=== PATIENT | male | born 1985 | race Caucasian/White ===

== ENCOUNTER → 2024-08-10 | Outpatient (CLI) | payer BC, SELFPAY ==
--- NOTE | 2024-08-10 16:05 | CT_ITS ---
PROCEDURE: ABDOMEN/PELVIS WITH CONTRAST REASON FOR EXAM: Left lower quadrant pain. Possible diverticulitis. TECHNIQUE: Abdomen and pelvis CT with intravenous contrast. Oral contrast was also used. IV CONTRAST: 100 cc of Isovue-300. COMPARISON: None. FINDINGS: Lung bases: Clear Liver: Unremarkable. Gallbladder: Unremarkable. Spleen: Unremarkable. Pancreas: Unremarkable. Adrenals: Unremarkable. Kidneys: Unremarkable. Bladder: Unremarkable. Reproductive Organs: Unremarkable. Bowel: Sigmoid colon diverticula with wall thickening and adjacent inflammatory changes. No evidence of perforation or abscess. Appendix: Normal. Lymph nodes: No suspicious lymph node enlargement. Vasculature: Major vascular structures are unremarkable. Peritoneum / Retroperitoneum: No ascites. No free air. Bones: Unremarkable. CT/Abdomen/Pelvis WITH Contrast IMPRESSION: Findings in keeping with non complicated sigmoid diverticulitis. One or more dose reduction techniques were used (e.g., Automated exposure contr ol, adjustment of the mA and/or kV according to patient size, use of iterative reconstruction technique). Reading Location: [facility]
== END | disposition home or self-care (01) ==
LOC: CT 14:06
PROVIDERS: PCP Family Medicine; Referring Provider Nurse Practitioner Acute Care; Visit Provider Nurse Practitioner Acute Care
DX: R10.32 Left lower quadrant pain (principal)
CPT/HCPCS: 74177; Q9967

== ENCOUNTER 2024-10-18 08:44 | Day surgery (SDC) | payer BC, SELFPAY ==
[2024-10-18] VITALS (8 sets, daily range): BP systolic 91–156; BP diastolic 62–118; PULSE 65–79; RESP 16–18; TEMP 36.2–36.7; O2SAT 94–97; BMI 40.2
[2024-10-18] MEDS: Lactated Ringers 1,000 ML 15 ML IV (09:16)
--- NOTE | 2024-10-18 09:20 | PCM.HP.STD ---
HPI - General General Date of Admission: 10/18/24 Date of Service: 10/18/24 Chief Complaint: Diverticulitis HPI Narrative 39y/o male presents for evaluation of diverticulitis. CT completed in ED on 04/16/2024 revealed moderate diverticulitis in the descending colon. LABS 04/16/2024 CBC and CMP unremarkable Reviewed Dr. Shruthi arriaga note 04/22/2024 ED records [facility] 04/16/2024 CT 04/16/2024 - pain from 04/2024 episode resolved - reports he developed the same pain two days ago - gas, slight fever (100), cramping left side of the abdomen - nausea, diarrhea, ABD pain and bloating - increase in frequency of stools and smaller in quantity - reports he is having intermittent stabbing pain - denies any bleeding - c/o gas and pressure - April pain was more persistent - has never had a colonoscopy - denies any family h/o colon CA - denies any heart or lung disease - denies any kidney disease - denies any weight loss [facility] Medical History (Updated 10/18/24 @ 09:[address] Dai Friend, DO) Wears contact lenses Wears glasses Alcohol use History of diverticulitis Non-smoker History of echocardiogram Segmental and somatic dysfunction of sacral region Segmental and somatic dysfunction of rib cage Segmental and somatic dysfunction of pelvic region Segmental and somatic dysfunction of lumbar region Segmental and somatic dysfunction of cervical region Mid back pain Diverticulitis HTN (hypertension) Home Medications ?Medication ?Instructions ?Recorded ?Last Taken ?Type acetaminophen 325 mg capsule 325 mg PO ONCE PRN fever or pain 08/10/24 Unknown History ondansetron HCl 4 mg tablet 4 mg PO .COMPLEX #5 tabs 08/10/24 Unknown Rx simethicone 180 mg capsule (Gas-X 180 mg PO .after meals and HS 08/10/24 Unknown History Ultra-Strength) sodium sul 1.479 gram-potas ch See Rx Instructions PO PER PKG DIR 08/10/24 Unknown Rx 0.188 gram-magnes sul 0.225 gram #24 tabs tablet (Sutab) Allergy/AdvReac Type Severity Reaction Status Date / Time doxycycline AdvReac Intermediate nausea and Verified 10/18/24 09:13 vomiting Family History Mother Diabetes Hypertension Surgical History History of vasectomy Social History household members: none Smoking Status: Never smoker alcohol intake: current alcohol intake frequency: a few times a month Alcohol type: beer substance use type: does not use caffeine: Yes ROS Constitutional Constitutional: Denies fatigue, fever(s), poor appetite, weight gain or weight loss Gastrointestinal Gastrointestinal: Denies belching, bloating, change in bowel habits, change in stool character, chewing difficulty, coffee ground emesis, constipation, cramping, diarrhea, dyspepsia, dysphagia, early satiety, excessive flatus, fecal incontinence, heartburn, hematemesis, hematochezia, hemorrhoids, loose stools, melena, nausea, odynophagia, rectal bleeding, tenesmus, vomiting or weight changes Physical Exam Const alert, oriented x3, no apparent distress and healthy appearing General Appearance: cooperative GI normal to inspection, nondistended, normoactive bowel sounds, soft to palpation, non-tender and non-distended Percussion: normal to percussion Rectal Exam: deferred Assessment & Plan Assessment/Plan (1) LLQ pain: (2) Diverticulitis: PLAN: Assessment and Plan Assessment and Plan (1) LLQ pain: Status: Acute Orders: Orders Abdomen/Pelvis WITH Contrast Today R10.32 - Left lower quadrant pain Medications: New sod sulf-pot chloride-mag sulf 1.479-0.188- 0.225 gram (Sutab) take as directed for split dose bowel prep 24 tabs 0RF ondansetron HCl 4 mg orally; two tablets PO two hours prior to start of bowel prep and one every 4 hours as needed for N/V 5 tabs 0RF Plan 39y/o male presents for consultation. CT completed in ED on 04/16/2024 revealed moderate diverticulitis in the descending colon. CBC and CMP were unremarkable at that time. He reports recurrent left sided abdominal pain began two days ago, this is the same quality and intensity of pain he experienced with initial episode of acute diverticulitis. He reports a fever of 100 on Friday. He has been on a soft diet. He also complains of nausea, bloating and diarrhea. Abdominal exam today is remarkable for moderate left sided abdominal pain. I have scheduled him for a STAT CT and will plan to proceed with colonoscopy in 10-12 weeks. Patient Instructions: STAT CT today Colonoscopy in 10-12 weeks - Sutab bowel prep
--- NOTE | 2024-10-18 09:36 | PRE.ANES_ITS ---
ASA Classification* ASA Classification ASA Classification: 3 Assessment & Plan Anesthesia* Anesthesia Assessment Anesthesia Assessment: Discussed sedation and/or anesthesia options, risks, benefits, and alternatives with patient/parents/legal guardian/POA. Questions invited. The patient/parents/legal guardian/POA seems to understand and agrees to proceed with anesthesia plan. Reviewed the physical assessment, medical history, allergy history and patient home medications list prior to surgery/procedure/anesthetic and documented any changes. Performed airway and anesthesia risk assessments. Anesthesia Type Anesthesia Type: MAC History Source History Obtained from:: Patient and Chart Anesthesia Focused Assessment* Temperature: 98.1 F Pulse Rate: 79 Blood Pressure: 124/83 Respiratory Rate: 18 Pulse Ox: 97 Oxygen Delivery Method: Room Air Airway Assessment Mouth opens: >3 cm Mallampati Score: III Teeth Condition: Missing (Patient has several missing molars. 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 When Was Last Pacemaker Check QUESTION #4 FULL TEXT: You/Your Family Experience fever (hyperthermia) with Anesthesia Last Oral Intake Last Oral intake: Last Oral Intake NPO since 07:00 10/18/24 09:27 Meds taken in AM with sips of No 10/18/24 09:27 water? Meds patient instructed to take am of surgery Any additional information?: Yes NPO since: 07:00 (Patient finished prep at 7 AM.) PONV PONV - construction job titles: PONV - construction job titles Female No 10/14/24 13:40 HX of Motion Sickness No 10/14/24 13:40 HX of N/V After Surgery No 10/14/24 13:40 Non-Smoker No 10/14/24 13:40 Duration of Surgery greater No 10/14/24 13:40 than 60 minutes Number of Risk Factors PONV Score Height & Weight Height & Weight: Anesthesia: Height & Weight Height 5 ft 11 in 10/18/24 09:27 Weight: 130.9 kg 10/18/24 09:27 Body Mass Index (BMI) 40.2 10/18/24 09:27 Respiratory Assessment Respiratory Assessment - construction job titles: Respiratory Tract Infection Hx - construction job titles Hx Respiratory Tract Infection No 10/14/24 13:40 STOP Sleep Apnea STOP Sleep Apnea - construction job titles: STOP Sleep Apnea - construction job titles Hx Hypertension No 10/14/24 13:40 Hx Sleep Apnea No 10/14/24 13:40 CPAP BIPAP Do you snore loudly (louder No 10/14/24 13:40 than talking or can be heard Do you often feel tired/ No 10/14/24 13:40 fatigued/ sleepy during daytime? Has anyone observed you stop No 10/14/24 13:40 breathing during sleep? STOP Results Negative 10/14/24 13:40 QUESTION #5 FULL TEXT : Do you snore loudly (louder than talking or can be heard through closed doors)? 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 Specify any problems Hx of Preganancy in last 3 N/A 10/14/24 13:40 Months Nurse Filling Out Transfusion VLEHHERTEL 10/14/24 13:40 & Questions: Date: 10/14/24 10/14/24 13:40 Time: 13:45 10/14/24 13:40 Patient unable to answer at this time (ie. confused, unrespo /Reproduction History /Reproductive History - construction job titles: /Reproductive Hx- construction job titles Hx Now Gestational Age (in weeks): EDC: Hx Hx Para Hx Section SAB Active Medications Active Medications: Current Medications Generic Name Dose Route Start Last Admin Trade Name Freq PRN Reason Stop Dose Admin Lactated Ringer's 1,000 mls @ 15 mls/hr 10/18/24 09:15 10/18/24 09:16 IV 15 mls/hr .Q48H NITIN Administration PFSH Medical History Wears contact lenses Wears glasses Alcohol use History of diverticulitis Non-smoker History of echocardiogram Segmental and somatic dysfunction of sacral region Segmental and somatic dysfunction of rib cage Segmental and somatic dysfunction of pelvic region Segmental and somatic dysfunction of lumbar region Segmental and somatic dysfunction of cervical region Mid back pain Diverticulitis HTN (hypertension) Home Medications ?Medication ?Instructions ?Recorded ?Last Taken ?Type acetaminophen 325 mg capsule 325 mg PO ONCE PRN fever or pain 08/10/24 Unknown History ondansetron HCl 4 mg tablet 4 mg PO .COMPLEX #5 tabs 0 08/10/24 Unknown Rx simethicone 180 mg capsule (Gas-X 180 mg PO .after mono ls and HS 08/10/24 Unknown History Ultra-Strength) sodium sul 1.479 gram-potas ch See Rx Instructions PO PER PKG DIR 08/10/24 Unknown Rx 0.188 gram-magnes sul 0.225 gram #24 tabs tablet (Sutab) Allergy/AdvReac Type Severity Reaction Status Date / Time doxycycline AdvReac Intermediate nausea and Verified 10/18/24 09:13 vomiting Family History Mother Diabetes Hypertension Surgical History History of vasectomy Social History household members: none Smoking Status: Never smoker alcohol intake: current alcohol intake frequency: a few times a month Alcohol type: beer substance use type: does not use caffeine: Yes Review of Systems (Anesthesia) ROS Narrative System reviewed and no additional complaints, except as documented.
--- NOTE | 2024-10-18 09:37 | NURSING ---
suspected vagal episode in ac 17 pre op. vss after. patient diapharetic, nauseous. dr. kincaid aware.
--- NOTE | 2024-10-18 10:00 | COLBX_PTH ---
PATIENT: RAVI EWING LOC: EN U#:[id number] AGE/SX: 39/M ROOM: RE10/18/[address]: Dr. Suhas Moore DO : 1985 BED: DIS: 10/18/2024 SPEC #: [id number] RECD: 10/18/24 12:56 STATUS: ALCIDES REQ #: [id number] RITA: 10/18/24 10:[address]: Suhas Moore DEPT: SURGICAL PATHOLOGY RECD BY: Ke Cardona ENTERED: 10/18/24 13:29 SP TYPE: COLON BX BHUMIKA DR: Dr. Long Hawkins DO Tissues: A - Sigmoid colon biopsy Procedures: Surgery Specimen Level IV HEADER OPERATION: Colonoscopy, biopsy PRE-OP DIAGNOSIS: Left lower quadrant pain, diverticulitis TISSUE SUBMITTED: A- Sigmoid colon biopsy MICROSCOPIC DIAGNOSIS A. Sigmoid colon, biopsy: * Colonic mucosa with no pathologic change * Benign lymphoid aggregate MICROSCOPIC DESCRIPTION Slides are reviewed. GROSS DESCRIPTION A. Received in formalin in a container labeled with the patient's name, date of , and sigmoid colon biopsy are 2 deluca-pink fragments of mucosal tissue measuring 0.3 x 0.3 x 0.3 cm and 0.8 x 0.2 x 0.2 cm. Submitted in toto in A1. [facility] 10-18-2024 CPT:04944
--- NOTE | 2024-10-18 10:25 | OP.CCLET_ITS ---
10/18/2024 Long Hawkins Re : Colonoscopy procedure for Sanju Eason Dear Shruthi This procedure was performed on Friday, October 18, 2024. My impressions and recommendations are as follows: Impressions : - Diverticulosis in the recto-sigmoid colon, in the sigmoid colon and in the descending colon. Biopsied. - Localized mild inflammation was found in the sigmoid colon secondary to colitis. Biopsied. - The examination was otherwise normal on direct and retroflexion views. Recommendations : - Discharge patient to home. - Resume previous diet. - Continue present medications. - Await pathology results. - Repeat colonoscopy in 10 years for screening purposes. My findings are described in the full procedure note, which is enclosed. If I can be of further assistance, please feel free to contact me at . Sincerely, Suhas Moore, 10/18/2024 10:25:27 AM This report has been signed electronically.
--- NOTE | 2024-10-18 10:25 | OP.COLON_ITS ---
Patient Name: Sanju Eason Procedure Date: 10/18/2024 9:57 AM Date of : 1985 Age: 39 Procedure: Colonoscopy Indications: Abdominal pain in the left lower quadrant, Abnormal CT of the GI tract Providers: Suhas Moore DO Referring MD: Long Hawkins Medicines: Monitored Anesthesia Care Patient Profile: This is a 39 year old male. Refer to note in patient chart for documentation of history and physical. Last Colonoscopy: none. The patient's first colonoscopy is today. Complications: No immediate complications. Procedure: Pre-Anesthesia Assessment: - Prior to the procedure, a History and Physical was performed, and patient medications and allergies were reviewed. The patient is competent. The risks and benefits of the procedure and the sedation options and risks were discussed with the patient. All questions were answered and informed consent was obtained. Patient identification and proposed procedure were verified by the physician in the pre-procedure area. Mental Status Examination: alert and oriented. Airway Examination: normal oropharyngeal airway and neck mobility. Respiratory Examination: clear to auscultation. CV Examination: normal. Prophylactic Antibiotics: The patient does not require prophylactic antibiotics. Prior Anticoagulants: The patient has taken no anticoagulant or antiplatelet agents except for NSAID medication. ASA Grade Assessment: II - A patient with mild systemic disease. After reviewing the risks and benefits, the patient was deemed in satisfactory condition to undergo the procedure. The anesthesia plan was to use monitored anesthesia care (MAC). Immediately prior to administration of medications, the patient was re-assessed for adequacy to receive sedatives. The heart rate, respiratory rate, oxygen saturations, blood pressure, adequacy of pulmonary ventilation, and response to care were monitored throughout the procedure. The physical status of the patient was re-assessed after the procedure. After I obtained informed consent, the scope was passed under direct vision. Throughout the procedure, the patient's blood pressure, pulse, and oxygen saturations were monitored continuously. The was introduced through the anus and advanced to the cecum, identified by appendiceal orifice and ileocecal valve. The colonoscopy was performed without difficulty. The patient tolerated the procedure well. The quality of the bowel preparation was adequate. The terminal ileum, ileocecal valve, appendiceal orifice, and rectum were photographed. Scope In: 10:07:36 AM Scope Withdrawal Time 0 hours 7 minutes 35 seconds Scope Out: 10:18:14 AM Total Procedure Duration Time 0 hours 10 minutes 38 seconds Findings: The perianal and digital rectal examinations were normal. Multiple small and large-mouthed diverticula were found in the recto-sigmoid colon, sigmoid colon and descending colon. Biopsies were taken with a cold forceps for histology. Verification of patient identification for the specimen was done. Estimated blood loss was minimal. Localized mild inflammation characterized by erosions, erythema and granularity was found in the sigmoid colon. Biopsies were taken with a cold forceps for histology. Verification of patient identification for the specimen was done. Estimated blood loss was minimal. The exam was otherwise without abnormality on direct and retroflexion views. Impression: - Diverticulosis in the recto-sigmoid colon, in the sigmoid colon and in the descending colon. Biopsied. - Localized mild inflammation was found in the sigmoid colon secondary to colitis. Biopsied. - The examination was otherwise normal on direct and retroflexion views. Recommendation: - Discharge patient to home. - Resume previous diet. - Continue present medications. - Await pathology results. - Repeat colonoscopy in 10 years for screening purposes. Procedure Code(s): --- Professional --- 25842, Colonoscopy, flexible; with biopsy, single or multiple CPT copyright 2021 [employer]. All rights reserved. The codes documented in this report are preliminary and upon inclusion special educator review may be revised to meet current compliance requirements. Suhas Moore DO 10/18/2024 10:25:27 AM This report has been signed electronically. Number of Addenda: 0 Note Initiated On: 10/18/2024 9:57 AM
--- NOTE | 2024-10-18 10:30 | PCM.POST.ANE ---
Anesthesia: Postop Eval I Current Vital Signs Temperature: 97.4 F Pulse Rate: 74 Blood Pressure: 154/93 Respiratory Rate: 18 Pulse Ox: 97 Oxygen Delivery Method: Room Air Assessment Airway patent: Yes Spontaneous unlabored respirations: Yes Mental status: Awake and Calm nausea: No Vomiting: No Anesthesia Complication: No Fluid Hydration Crystalloid volume administer (ml): 500 Total IV fluid infused: 500 Progress Note Anesthesia document: Postop Eval 1 completed: Yes
--- NOTE | 2024-10-18 18:02 | PCM.POSTANE2 ---
Anesthesia Postop Eval I Sum Postop Eval Completion status Anesthesia document: Postop Eval 1 completed: Yes Anesthesia Postop Eval I Summary Anesthesia Postop Eval I Summary: Anesthesia Postop Eval I: Assessment Summary Airway patent Yes 10/18/24 10:31 [email or web address] Spontaneous unlabored Yes 10/18/24 10:31 [email or web address] respirations Mental status Awake,Calm 10/18/24 10:31 [email or web address] nausea No 10/18/24 10:31 [email or web address] Vomiting No 10/18/24 10:31 [email or web address] Anesthesia Postop Eval I: Fluid Summary Crystalloid volume administer 500 10/18/24 10:31 [email or web address] (ml) Colloids volume administered ( ml) Blood Product volume administered (ml) Total IV fluid infused 500 10/18/24 10:31 [email or web address] Anesthesia Postop Eval I: Summary Notes Anesthesia Complication No 10/18/24 10:31 [email or web address] Anesthesia Complication Comment: Post-operative progress note Anesthesia: Postop Eval II Evaluation Mental status: Awake and Calm Pain Level: 0 nausea: No Vomiting: No Complications Anesthesia Complication: No
== END 2024-10-18 11:17 | disposition home or self-care (01) ==
LOC: EN 08:44 → AC 08:45
PROVIDERS: PCP Family Medicine; Referring Provider Family Medicine; Visit Provider Internal Medicine Gastroenterology
PROC: 0DJD8ZZ Inspection of Lower Intestinal Tract, Via Natural or Artificial Opening Endoscopic (ICD-10-PCS; CPT 45378; principal; 2024-10-18 09:55)
DX: K57.92 Diverticulitis of intestine, part unspecified, without perforation or abscess without bleeding (principal); I10 Essential (primary) hypertension; K57.30 Diverticulosis of large intestine without perforation or abscess without bleeding; R10.32 Left lower quadrant pain; Z98.52 Vasectomy status; K52.9 Noninfective gastroenteritis and colitis, unspecified
CPT/HCPCS: 43239; 88305; J2405